=== PATIENT | female | born 1995 | race Caucasian/White ===

== ENCOUNTER 2019-03-28 14:52 | Emergency (ER) | payer BC ==
--- OUTSIDE RECORDS SUMMARY | 2019-03-28 14:55 | XMS REPORT ---
:1995 Author Organization [facility] Address [address] [place] [address] Dr. Davis [address] [place] [id number] Care Team Providers Name Role Phone Unavailable Unavailable Unavailable Problems This patient has no known problems. Allergies, Adverse Reactions, Alerts This patient has no known allergies or adverse reactions. Medications This patient has no known medications.
--- NOTE | 2019-03-28 15:27 | EDPHYS ---
Physician Documentation [facility] Name: Gautam Hunt Age: 23 yrs Sex: Female : 1995 Arrival Date: 03/28/2019 Time: 14:55 Bed 14 Private MD: ED Physician Suleiman Meadows HPI: 03/28 15:25 This 23 yrs old Female presents to ER via Ambulatory with complaints of Ear pm1 Pain, Sore Throat. 15:25 The patient presents with pain. The complaints affect the right ear. Onset: The pm1 symptoms/episode began/occurred this morning. Modifying factors: The symptoms are alleviated by nothing, the symptoms are aggravated by nothing. Associated signs and symptoms: Pertinent positives: sore throat, Pertinent negatives: fever, nausea, vomiting. Severity of symptoms: in the emergency department the symptoms are unchanged. The patient has not experienced similar symptoms in the past. The patient has not recently seen a physician. 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 - Social history:: Smoking status: Patient uses tobacco products. - Ebola Screening: : Patient denies travel to an Ebola-affected area in the 21 days before illness onset. ROS: 15:25 Constitutional: Negative for fever, chills, and weight loss, Eyes: Negative for injury, pm1 pain, redness, and discharge. 15:25 Neck: Negative for injury, pain, and swelling, Cardiovascular: Negative for chest pain, palpitations, and edema, Respiratory: Negative for shortness of breath, cough, wheezing, and pleuritic chest pain, Abdomen/GI: Negative for abdominal pain, nausea, vomiting, diarrhea, and constipation, Back: Negative for injury and pain, MS/Extremity: Negative for injury and deformity, Skin: Negative for injury, rash, and discoloration, Neuro: Negative for headache, weakness, numbness, tingling, and seizure. 15:25 ENT: Positive for ear pain, sore throat, Negative for drainage from ear(s), sinus congestion, sinus pain, difficulty swallowing, difficulty handling secretions, hoarseness. Exam: 15:25 Constitutional: This is a well developed, well nourished patient who is awake, alert, pm1 and in no acute distress. Head/Face: Normocephalic, atraumatic. 15:25 Neck: Trachea midline, no thyromegaly or masses palpated, and no cervical lymphadenopathy. Supple, full range of motion without nuchal rigidity, or vertebral point tenderness. No Meningismus. Chest/axilla: Normal chest wall appearance and motion. Nontender with no deformity. No lesions are appreciated. Cardiovascular: Regular rate and rhythm with a normal S1 and S2. No gallops, murmurs, or rubs. Normal PMI, no JVD. No pulse deficits. Respiratory: Lungs have equal breath sounds bilaterally, clear to auscultation and percussion. No rales, rhonchi or wheezes noted. No increased work of breathing, no retractions or nasal flaring. Back: No spinal tenderness. No costovertebral tenderness. Full range of motion. Skin: Warm, dry with normal turgor. Normal color with no rashes, no lesions, and no evidence of cellulitis. MS/ Extremity: Pulses equal, no cyanosis. Neurovascular intact. Full, normal range of motion. 15:25 ENT: External ear(s): are unremarkable, Ear canal(s): are normal, TM's: bulging, on the right, erythema, that is moderate, on the right, Examination of the other ear shows no obvious abnormality, Mouth: is normal, Posterior pharynx: Airway: normal, no evidence of obstruction, patent, Tonsils: bilaterally enlarged, with erythema, no exudate, no ulcerations, peritonsillar mass, is not appreciated, pooling of secretions, is not appreciated. 15:25 Neuro: Orientation: is normal, Motor: is normal, moves all fours. Vital Signs: 15:00 BP 126 / 86; Pulse 115; Resp 20; Temp 98.1; Pulse Ox 97% on R/A; Weight 95.25 kg (R); aj1 Height 5 ft. 0 in. (152.40 cm) (R); 15:00 Body Mass Index 41.01 (95.25 kg, 152.40 cm) aj1 MDM: 15:19 Patient medically screened. pm1 15:25 ED course: Offered patient rocephin IM. Patient refused, just wants PO medications for pm1 AOM. 15:25 Data reviewed: vital signs. Data interpreted: Pulse oximetry: on room air is 97 %. pm1 Interpretation: normal. Counseling: I had a detailed discussion with the patient and/or guardian regarding: the historical points, exam findings, and any diagnostic results supporting the discharge/admit diagnosis, the need for outpatient follow up, to return to the emergency department if symptoms worsen or persist or if there are any questions or concerns that arise at home. Administered Medications: No medications were administered Disposition: 16:13 Co-signature as Attending Physician, Suleiman Meadows MD. rn Disposition: 03/28/19 15:26 Discharged to Home. Impression: Otitis media, unspecified, right ear, Acute pharyngitis. - Condition is Stable. - Discharge Instructions: Otitis Media, Adult, [id number], Pharyngitis, [id number]. - Prescriptions for Amoxicillin 500 mg Oral Capsule - take 1 capsule by ORAL route every 8 hours for 10 days; 30 tablet. Tylenol- Codeine #3 300-30 mg Oral Tablet - take 2 tablets by ORAL route every 6 hours As needed; 20 tablet. - Work release form, Medication Reconciliation Form, Thank You Letter, Antibiotic Education, Prescription Opioid Use form. - Follow up: Emergency Department; When: As needed; Reason: Worsening of condition. Follow up: Private Physician; When: 2 - 3 days; Reason: Recheck today's complaints, Continuance of care, Re-evaluation by your physician. - Problem is new. - Symptoms have improved. Signatures: Fatimah Wall RN RN aj1 Suleiman Meadows MD MD rn Calderon, Audri, RN RN aa5 Jamie Zepeda NP PEDIATRIC CLINICAL NURSE SPECIALIST pm1 Corrections: (The following items were deleted from the chart) 15:59 15:26 03/28/2019 15:26 Discharged to Home. Impression: Otitis media, unspecified, right aa5 ear; Acute pharyngitis. Condition is Stable. Forms are Medication Reconciliation Form, Thank You Letter, Antibiotic Education, Prescription Opioid Use. Follow up: Emergency Department; When: As needed; Reason: Worsening of condition. Follow up: Private Physician; When: 2 - 3 days; Reason: Recheck today's complaints, Continuance of care, Re-evaluation by your physician. Problem is new. Symptoms have improved. pm1
--- NOTE | 2019-03-28 15:27 | ER ---
Nurse's Notes [facility] Name: Gautam Hunt Age: 23 yrs Sex: Female : 1995 Arrival Date: 03/28/2019 Time: 14:55 Bed 14 Private MD: Diagnosis: Otitis media, unspecified, right ear;Acute pharyngitis Presentation: 03/28 14:59 Presenting complaint: Patient states: Right ear pain and decreased hearing since this aj1 morning, now she is having pain in her throat as well. Denies fever. Transition of care: patient was not received from another setting of care. Onset of symptoms was March 28, 2019. Risk Assessment: Do you want to hurt yourself or someone else? Patient reports no desire to harm self or others. Initial Sepsis Screen: Does the patient meet any 2 criteria? No. Patient's initial sepsis screen is negative. Does the patient have a suspected source of infection? No. Patient's initial sepsis screen is negative. Care prior to arrival: None. 14:59 Method Of Arrival: Ambulatory aj1 14:59 Acuity: MADELEINE 4 aj1 Triage Assessment: 15:00 General: Appears in no apparent distress. comfortable, Behavior is calm, cooperative, aj1 appropriate for age. Pain: Complains of pain in right ear Pain currently is 4 out of 10 on a pain scale. EENT: Parent/caregiver reports the patient having ear pain, sore throat. Neuro: Level of Consciousness is awake, alert, obeys commands. Cardiovascular: Patient's skin is warm and dry. Respiratory: Airway is patent Respiratory effort is even, unlabored, Respiratory pattern is regular, symmetrical. 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 - Social history:: Smoking status: Patient uses tobacco products. - Ebola Screening: : Patient denies travel to an Ebola-affected area in the 21 days before illness onset. Screenin:15 Abuse screen: Denies threats or abuse. Nutritional screening: No deficits noted. aa5 Tuberculosis screening: No symptoms or risk factors identified. Fall Risk None identified. Assessment: 15:15 General: Appears comfortable, Behavior is calm, cooperative. Pain: Complains of pain in aa5 right ear and throat Pain does not radiate. Pain currently is 7 out of 10 on a pain scale. Quality of pain is described as throbbing, sore Is continuous. Neuro: Level of Consciousness is awake, alert, obeys commands, Oriented to person, place, time, situation. Cardiovascular: Patient's skin is warm and dry. Respiratory: Airway is patent Respiratory effort is even, unlabored, Respiratory pattern is regular, symmetrical. GI: No signs and/or symptoms were reported involving the gastrointestinal system. : No signs and/or symptoms were reported regarding the genitourinary system. EENT: Reports pain in right ear and throat. Derm: Skin is pink, warm \T\ dry. Musculoskeletal: Range of motion: intact in all extremities. 15:57 Reassessment: Patient is alert, oriented x 3, equal unlabored respirations, skin aa5 warm/dry/pink. Vital Signs: 15:00 BP 126 / 86; Pulse 115; Resp 20; Temp 98.1; Pulse Ox 97% on R/A; Weight 95.25 kg (R); aj1 Height 5 ft. 0 in. (152.40 cm) (R); 15:00 Body Mass Index 41.01 (95.25 kg, 152.40 cm) aj1 ED Course: 14:55 Patient arrived in ED. as 14:59 Triage completed. aj1 15:00 Arm band placed on Patient placed in an exam room. aj1 15:03 Jamie Zepeda NP is PHCP. pm1 15:03 Suleiman Meadows MD is Attending Physician. pm1 15:15 Patient has correct armband on for positive identification. aa5 15:15 No provider procedures requiring assistance completed. aa5 15:17 Liliana Wright, RN is Primary Nurse. aa5 15:57 Patient did not have IV access during this emergency room visit. aa5 Administered Medications: No medications were administered Outcome: 15:26 Discharge ordered by . pm1 15:57 Discharged to home ambulatory. aa5 15:57 Condition: good 15:57 Discharge instructions given to patient, Instructed on discharge instructions, follow up and referral plans. medication usage, Demonstrated understanding of instructions, follow-up care, medications, Prescriptions given X 2. 15:59 Patient left the ED. aa5 Signatures: Fatimah Wall RN RN aj1 Dorys Shelby Audri, RN RN aa5 Jamie Zepeda, SOLDERING MACHINE OPERATOR HELPER SOLDERING MACHINE OPERATOR HELPER pm1
[2019-03-28 16:30] VITALS: BP 126/86; TEMP 98.1; O2SAT 97
== END 2019-03-28 15:59 | disposition home or self-care (01) ==
LOC: ER 14:52
DX: H66.91 Otitis media, unspecified, right ear (principal); J02.9 Acute pharyngitis, unspecified; Z72.0 Tobacco use
CPT/HCPCS: 99282